=== PATIENT | male | born 1945 | race Caucasian/White ===

== ENCOUNTER 2017-02-16 13:08 | Inpatient (IN) ==
[2017-02-16] MEDS ORDERED: 0.9 % Sodium Chloride 500 ML IVC ONE ×2 (13:49→15:28)
[2017-02-16 13:57] LABS: Basophils % 0.4 %; Eosinophils # 0.4 K/mcL (0.0-0.6); Eosinophils % 7.7 %; Hematocrit 31.2 % (37.5-50.1); Hemoglobin 10.9 g/dL (12.9-16.9); Immature Granulocytes % 0.2 % (0-4); Lymphocytes # 2.3 K/mcL (0.6-4.6); Lymphocytes % 42.2 %; Mean Corpuscular HGB Conc 34.9 g/dL (31.6-35.5); Mean Corpuscular Hemoglobin 32.3 pg (28.0-33.3); Mean Corpuscular Volume 92.6 fL (83.0-100.0); Monocytes # 0.8 K/mcL (0.0-1.3); Monocytes % 14.4 %; Neutrophils # 1.9 K/mcL (1.6-8.9); Platelet Count 115 K/mcL (140-400); Red Blood Count 3.37 M/mcL (4.19-5.50); Red Cell Distribution Width 14.5 % (11.5-14.5); Segmented Neutrophils % 35.1 %
[2017-02-16 14:03] LABS: Prothrombin Time 10.8 Seconds (9.4-12.1)
[2017-02-16 14:14] LABS: Alanine Aminotransferase 12 Units/L (0-55); Albumin 2.5 g/dL (3.5-5.0); Albumin/Globulin Ratio 1.3 (1.1-2.2); Alkaline Phosphatase 42 Units/L (38-126); Amylase 57 Units/L (25-125); Aspartate Amino Transferase 14 Units/L (5-34); BUN/Creatinine Ratio 24 (6-26); Bilirubin,Direct 0.1 mg/dL (0.0-0.5); Bilirubin,Indirect 0.2 mg/dL (0.0-1.2); Bilirubin,Total 0.3 mg/dL (0.2-1.2); Blood Urea Nitrogen 23 mg/dL (8-26); Calcium 8.1 mg/dL (8.6-10.8); Carbon Dioxide 22 mEq/L (19-29); Chloride 115 mEq/L (98-109); Glucose 94 mg/dL (70-99); Lipase 18 Units/L (8-78); Osmolality,Calculated 295 (280-300); Potassium 3.6 mEq/L (3.5-4.5); Sodium 141 mEq/L (136-145); Total Protein 4.5 g/dL (6.0-8.3); eGFR For African Americans > 60 (> 60); eGFR For Non-African Americans > 60 (> 60)
[2017-02-16 14:58] LABS: Bilirubin,Urine Negative (Negative); Blood,Urine Negative (Negative); Clarity,Urine Clear (Clear); Color,Urine Yellow (Yellow); Glucose,Urine (UA) Normal (Normal); Ketones,Urine Negative (Negative); Leukocyte Esterase,Urine Negative (Negative); Nitrite,Urine Negative (Negative); PH,Urine 5.5 pH Units (5.0-8.0); Protein,Urine Negative (Neg-Trace); Specific Gravity,Urine > 1.030 (1.010-1.025); Urobilinogen,Urine Normal (Normal)
--- NOTE | 2017-02-16 15:08 | Emergency Department Note ---
Disposition Clinical Impression: Hypotension Qualifiers: Hypotension type: unspecified hypotension type Qualified Code(s): I95.9 - Hypotension, unspecified Disposition: Admitted As Inpatient Condition: Fair Referrals: NO,PCP [Non-Partnered Physician] - Forms: Work/School Release, ED Satisfaction Letter Time of Disposition: 17:34 Abdominal Pain HPI - General Chief Complaint: ED Abdominal Pain Stated Complaint: abd distention, dark stool Time Seen by Provider: 02/16/17 13:25 Source: patient Limitations: no limitations Nursing Notes Reviewed: Yes Vital Signs Reviewed: Yes - History of Present Illness HPI Narrative: Old male with a past medical history of colon cancer with colon transection with the complaint of dark black stool since Sunday with some periumbilical abdominal pain. He was diagnosed with cancer in October 2016, he currently undergoes treatment every other week with chemotherapy. He states on Sunday he began having very dark and black stools and today he had 2 episodes of diarrhea that were also dark black. Also had some periumbilical pain has been constant and is notanything that makes it better or worse. Along with some abdominal distention. Admits to taking Pepto-Bismol for the past 3 days as well. No chest pain or shortness of breath, no diaphoresis, no vomiting, , however the patient does have nausea. He is seen on Sunday at [facility] and he had a CT of his abdomen pelvis and on that day. Pt Subjective Complaint: abdominal pain Onset (ago): day(s) Consistency: constant Location: periumbilical Pain Severity: mild Pain Scale: 0 Quality: aching - Related Data Home Medications Medication Instructions Recorded Confirmed Aspirin 81 mg PO DAILY 11/09/16 12/18/16 Carvedilol [Coreg] 0.5 tab PO BID 11/09/16 12/18/16 Docusate [Colace] 1 tab PO BID 11/09/16 12/18/16 Fluticasone Propionate Nasal 16 gm NS BID 11/09/16 12/18/16 [Flonase] GuaiFENesin/Dextromethorphan 5 ml PO QID PRN 11/09/16 12/18/16 [Children's Mucinex Cough Liq] Ketoconazole Shampoo [Nizoral 12 appl TP DAILY 11/09/16 12/18/16 Shampoo] Lisinopril [Zestril] 40 mg PO DAILY 11/09/16 12/18/16 Lovastatin [Altoprev] 40 mg PO DAILY 11/09/16 12/18/16 Naproxen [Naprosyn] 500 mg PO BID 11/09/16 12/18/16 Tamsulosin [Flomax] 0.4 mg PO DAILY 11/09/16 12/18/16 Venlafaxine [Effexor] 1 tab PO DAILY 11/09/16 12/18/16 amLODIPine [Norvasc] 5 mg PO DAILY 11/09/16 12/18/16 hydroCHLOROthiazide 12.5 mg PO DAILY 11/09/16 12/18/16 [Hydrochlorothiazide] raNITIdine HCl [Ranitidine HCl] 150 mg PO DAILY 11/09/16 12/18/16 Previous Rx's Medication Instructions Recorded Hydrocortisone Acetate 1 appl TP TID PRN #28 gm 11/09/16 [Hydrocortisone] Omeprazole [PriLOSEC] 20 mg PO DAILY #30 cap 11/09/16 Prochlorperazine Maleate 10 mg PO Q6HR PRN #60 tablet 11/09/16 [Compazine] Ondansetron ODT [Zofran ODT] 4 mg SL Q6HR PRN #20 tab.rapdis 11/27/16 Pantoprazole Sodium [Protonix] 40 mg PO DAILY #30 tablet. 11/27/16 Promethazine [Phenergan] 25 mg RC Q6HR PRN #20 supp.rect 01/22/17 Loratadine [Allergy Relief] 10 mg PO AD PRN #30 tablet 02/05/17 Gabapentin [Neurontin] 300 mg PO BID #30 capsule 02/14/17 Magic Mouthwash 5 ml PO Q4H PRN #240 ml 02/14/17 Allergies Allergy/AdvReac Type Severity Reaction Status Date / Time No Known Allergies Allergy Verified 12/04/16 11:22 Abdominal Pain PMH - Past Medical History Medical history: Reports: cancer, COPD, hypertension, kidney stones, other Male Surgical History: Reports: colectomy, herniorrhaphy, other Psychiatric history: Reports: no psych history - Social History Smoking status: Former smoker Alcohol use: Reports: none Drug use: Reports: none Physical Exam - General Limitations: no limitations General appearance: alert, in no apparent distress - Head Head exam: atraumatic, normocephalic - Eye Eye exam: Present: normal appearance, PERRL, EOMI - ENT ENT exam: normal exam, normal oropharynx, mucous membranes dry - Neck Neck exam: Present: normal inspection, full ROM, trachea midline, tenderness - Chest Chest inspection: Present: normal inspection, symmetric chest wall rise. Absent : tenderness - Respiratory Respiratory exam: Present: normal lung sounds bilaterally. Absent: respiratory distress, wheezes - Cardiovascular Cardiovascular exam: Present: regular rate, normal rhythm, normal heart sounds - Abdominal Exam Abdominal exam: Present: tenderness, distention, normal bowel sounds, other ( Healed midline abdominal scar.). Absent: guarding, rebound, rigidity Abdominal tenderness: Present: mild (Periumbilical) - Rectal Exam Rectal exam: Present: normal inspection, normal rectal tone, heme (-) stool. Absent: black stool, bloody stool, fecal impaction, hemorrhoids, mass, tenderness - Extremities Exam Extremities exam: Present: normal inspection, full ROM. Absent: tenderness, normal capillary refill - Back Exam Back exam: Present: normal inspection, full ROM. Absent: tenderness - Neurological Exam Neurological exam: Present: alert, oriented X3 - Psychiatric Psychiatric exam: Present: normal affect, normal mood - Skin Skin exam: Present: warm, dry, intact, normal color Course Course Narrative: Patient is a 71-year-old male with past medical history of colon cancer presents today with dark black stools and abdominal pain has been going on since Sunday. Plan do some GI labs on the patient also CT his abdomen and pelvis. His abdomen pelvis as performed on Sunday 2 days ago - Reevaluation(s) Reevaluation #1: Patient updated vital signs are blood pressure 100/72, heart rate of 83, 96% on room air. He has received 500ml bolus of NS. Discussed with the patient Peptobismal can turn his stool black and this sounds relevant to the patient have dark stools on Sunday since he had started taking it on Sunday and finished today. Time: 15:10 Reevaluation #2: I discussed patient's labs with him. His electrolytes were within normal limits , patient's CBC showed a hemoglobin of 10.9. Stool occult negative. After reviewing the labs I do not believe the patient is in need of a blood transfusion at this time. His urinalysis is normal except for a specific gravity of greater than 1.030 which I attribute to the patient being dehydrated. I have ordered another liter of fluids for the patient his recent blood pressure of 100/72 is still low considering the patient has a history of hypertension. I am waiting the results of his CT abd/pelv with IV contrast. Time: 15:38 Reevaluation #3: I went into reevaluate the patient. Blood pressure is 118/76. Old 1 L fluids and still has 500 mL normal saline bolus to go. She states she is feeling well. I then that we will discuss his disposition once the final bag of fluids is gone Time: 16:40 Additional Reevaluation(s): I discussed the plan with the patient to admit him for his hypotension agrees with the plan. - Consultations Consultation #1: I spoke with Man Zacarias NP. I discussed the patient case and to admit him for observation for transient hypotension. He will accept the patient. Time: 17:32 Vital Signs Temperature 97.4 F L 02/16/17 13:15 Pulse Rate 91 02/16/17 13:15 Respiratory Rate 16 02/16/17 13:15 Blood Pressure 86/61 02/16/17 13:15 O2 Sat by Pulse Oximetry 97 02/16/17 13:15 Temperature 97.4 F L 02/16/17 13:15 Pulse Rate 86 02/16/17 17:06 Respiratory Rate 14 02/16/17 17:06 Blood Pressure 124/76 02/16/17 17:06 O2 Sat by Pulse Oximetry 98 02/16/17 17:06 Oxygen Delivery Oxygen Delivery Room Air Abdominal Pain - Medical Records Medical records reviewed: Yes I reviewed the patient's medical records. - Lab Data Lab results reviewed: Yes I reviewed the patient's lab results. Result diagrams: 02/16/17 13:48 02/16/17 13:48 Lab Results 02/16/17 02/16/17 02/16/17 Range/Units 13:48 13:48 13:48 WBC 5.4 (4.3-11.1) K/mcL RBC 3.37 L (4.19-5.50) M/mcL Hgb 10.9 L (12.9-16.9) g/dL Hct 31.2 L (37.5-50.1) % MCV 92.6 (83.0-100.0) fL MCH 32.3 (28.0-33.3) pg MCHC 34.9 (31.6-35.5) g/dL RDW 14.5 (11.5-14.5) % Plt Count 115 L (140-400) K/mcL MPV 10.0 (9.4-12.4) fL Immature Gran % 0.2 (0-4) % Seg Neutrophils % 35.1 % Lymphocytes % 42.2 % Monocytes % 14.4 % Eosinophils % 7.7 % Basophils % 0.4 % Neutrophils # 1.9 (1.6-8.9) K/mcL Lymphocytes # 2.3 (0.6-4.6) K/mcL Monocytes # 0.8 (0.0-1.3) K/mcL Eosinophils # 0.4 (0.0-0.6) K/mcL Basophils # 0.0 (0.0-0.2) K/mcL PT 10.8 (9.4-12.1) Seconds INR 1.0 APTT 25.0 L (26.0-36.0) Seconds Sodium 141 (136-145) mEq/L Potassium 3.6 (3.5-4.5) mEq/L Chloride 115 H (98-109) mEq/L Carbon Dioxide 22 (19-29) mEq/L BUN 23 (8-26) mg/dL Creatinine 0.94 (0.72-1.25) mg/dL Est GFR ( Amer) > 60 (> 60) Est GFR (Non-Af Amer) > 60 (> 60) BUN/Creatinine Ratio 24 (6-26) Glucose 94 (70-99) mg/dL Calculated Osmolality 295 (280-300) Calcium 8.1 L (8.6-10.8) mg/dL Total Bilirubin 0.3 (0.2-1.2) mg/dL Direct Bilirubin 0.1 (0.0-0.5) mg/dL Indirect Bilirubin 0.2 (0.0-1.2) mg/dL AST 14 (5-34) Units/L ALT 12 (0-55) Units/L Alkaline Phosphatase 42 (38-126) Units/L Troponin I (0-0.03) ng/mL Serum Total Protein 4.5 L (6.0-8.3) g/dL Albumin 2.5 L (3.5-5.0) g/dL Globulin 2.0 L (2.4-3.5) g/dL Albumin/Globulin Ratio 1.3 (1.1-2.2) Amylase 57 (25-125) Units/L Lipase 18 (8-78) Units/L Urine Color (Yellow) Urine Clarity (Clear) Urine pH (5.0-8.0) pH Units Ur Specific York (1.010-1.025) Urine Protein (Neg-Trace) mg/dL Urine Glucose (UA) (Normal) mg/dL Urine Ketones (Negative) mg/dL Urine Blood (Negative) Urine Nitrite (Negative) Urine Bilirubin (Negative) Urine Urobilinogen (Normal) mg/dL Ur Leukocyte Esterase (Negative) Ur Culture Indicated? (NO) Stool Occult Blood (Negative) Blood Type Antibody Screen 02/16/17 02/16/17 02/16/17 Range/Units 13:48 13:48 14:19 WBC (4.3-11.1) K/mcL RBC (4.19-5.50) M/mcL Hgb (12.9-16.9) g/dL Hct (37.5-50.1) % MCV (83.0-100.0) fL MCH (28.0-33.3) pg MCHC (31.6-35.5) g/dL RDW (11.5-14.5) % Plt Count (140-400) K/mcL MPV (9.4-12.4) fL Immature Gran % (0-4) % Seg Neutrophils % % Lymphocytes % % Monocytes % % Eosinophils % % Basophils % % Neutrophils # (1.6-8.9) K/mcL Lymphocytes # (0.6-4.6) K/mcL Monocytes # (0.0-1.3) K/mcL Eosinophils # (0.0-0.6) K/mcL Basophils # (0.0-0.2) K/mcL PT (9.4-12.1) Seconds INR APTT (26.0-36.0) Seconds Sodium (136-145) mEq/L Potassium (3.5-4.5) mEq/L Chloride (98-109) mEq/L Carbon Dioxide (19-29) mEq/L BUN (8-26) mg/dL Creatinine (0.72-1.25) mg/dL Est GFR ( Amer) (> 60) Est GFR (Non-Af Amer) (> 60) BUN/Creatinine Ratio (6-26) Glucose (70-99) mg/dL Calculated Osmolality (280-300) Calcium (8.6-10.8) mg/dL Total Bilirubin (0.2-1.2) mg/dL Direct Bilirubin (0.0-0.5) mg/dL Indirect Bilirubin (0.0-1.2) mg/dL AST (5-34) Units/L ALT (0-55) Units/L Alkaline Phosphatase (38-126) Units/L Troponin I 0.00 (0-0.03) ng/mL Serum Total Protein (6.0-8.3) g/dL Albumin (3.5-5.0) g/dL Globulin (2.4-3.5) g/dL Albumin/Globulin Ratio (1.1-2.2) Amylase (25-125) Units/L Lipase (8-78) Units/L Urine Color (Yellow) Urine Clarity (Clear) Urine pH (5.0-8.0) pH Units Ur Specific York (1.010-1.025) Urine Protein (Neg-Trace) mg/dL Urine Glucose (UA) (Normal) mg/dL Urine Ketones (Negative) mg/dL Urine Blood (Negative) Urine Nitrite (Negative) Urine Bilirubin (Negative) Urine Urobilinogen (Normal) mg/dL Ur Leukocyte Esterase (Negative) Ur Culture Indicated? (NO) Stool Occult Blood Negative (Negative) Blood Type A POSITIVE Antibody Screen NEGATIVE 02/16/17 Range/Units 14:37 WBC (4.3-11.1) K/mcL RBC (4.19-5.50) M/mcL Hgb (12.9-16.9) g/dL Hct (37.5-50.1) % MCV (83.0-100.0) fL MCH (28.0-33.3) pg MCHC (31.6-35.5) g/dL RDW (11.5-14.5) % Plt Count (140-400) K/mcL MPV (9.4-12.4) fL Immature Gran % (0-4) % Seg Neutrophils % % Lymphocytes % % Monocytes % % Eosinophils % % Basophils % % Neutrophils # (1.6-8.9) K/mcL Lymphocytes # (0.6-4.6) K/mcL Monocytes # (0.0-1.3) K/mcL Eosinophils # (0.0-0.6) K/mcL Basophils # (0.0-0.2) K/mcL PT (9.4-12.1) Seconds INR APTT (26.0-36.0) Seconds Sodium (136-145) mEq/L Potassium (3.5-4.5) mEq/L Chloride (98-109) mEq/L Carbon Dioxide (19-29) mEq/L BUN (8-26) mg/dL Creatinine (0.72-1.25) mg/dL Est GFR ( Amer) (> 60) Est GFR (Non-Af Amer) (> 60) BUN/Creatinine Ratio (6-26) Glucose (70-99) mg/dL Calculated Osmolality (280-300) Calcium (8.6-10.8) mg/dL Total Bilirubin (0.2-1.2) mg/dL Direct Bilirubin (0.0-0.5) mg/dL Indirect Bilirubin (0.0-1.2) mg/dL AST (5-34) Units/L ALT (0-55) Units/L Alkaline Phosphatase (38-126) Units/L Troponin I (0-0.03) ng/mL Serum Total Protein (6.0-8.3) g/dL Albumin (3.5-5.0) g/dL Globulin (2.4-3.5) g/dL Albumin/Globulin Ratio (1.1-2.2) Amylase (25-125) Units/L Lipase (8-78) Units/L Urine Color Yellow (Yellow) Urine Clarity Clear (Clear) Urine pH 5.5 (5.0-8.0) pH Units Ur Specific [place] > 1.030 H (1.010-1.025) Urine Protein Negative (Neg-Trace) mg/dL Urine Glucose (UA) Normal (Normal) mg/dL Urine Ketones Negative (Negative) mg/dL Urine Blood Negative (Negative) Urine Nitrite Negative (Negative) Urine Bilirubin Negative (Negative) Urine Urobilinogen Normal (Normal) mg/dL Ur Leukocyte Esterase Negative (Negative) Ur Culture Indicated? NO (NO) Stool Occult Blood (Negative) Blood Type Antibody Screen - Radiology Data Radiology results reviewed: Yes I reviewed the patient's radiology results. Abdomen/Pelvis CT 02/16/17 13:48 IMPRESSION: Status post distal transverse colonic resection similar to prior exam. Patient does have history of colon cancer. No evidence for tumor recurrence or metastatic disease within the abdomen or pelvis. Stable 6 mm hypodensity within the medial segment of the left hepatic lobe which again most likely represents a benign cyst. Stable bilateral renal cysts. Stable nonobstructing right nephrolithiasis. D/ / Sean Steve MD / Sean Steve MD Interpreting Provider: Sean Steve MD - EKG Data EKG attestation: Yes I reviewed and interpreted this EKG. EKG results narrative: G was interpreted by me. Hent is normal sinus rhythm at a rate of 84. [place], QRS , QT/QTC are within normal limits. No old EKG for comparison.
[2017-02-16] MEDS ORDERED: 0.9 % Sodium Chloride 1,000 ML IVC ONE (15:31)
--- NOTE | 2017-02-16 19:29 | Internal Med History&Physical ---
<Man Montiel - Last Filed: 02/16/17 23:27> Date of Encounter: 02/16/17 Time of Encounter: 19:28 Assessment and Plan (1) Abdominal pain Current visit: Yes Status: Acute 71-year-old male status post partial colectomy for colon cancer back in September with abdominal discomfort. Abdominal discomfort improves with eating and returns about an hour after. The patient does have complaints of abdominal bloating. - Patient complaint correlates with gastritis versus gastric ulcer. Abdominal bloating may be secondary to bowel gas. The patient also had a complaint of dark stool for the last week but also in the last week he has been taking oral Pepto-Bismol frequently for his epigastric discomfort. - CT of the abdomen was without significant findings. There is a nonobstructing right kidney stone, 6 mm cyst in the liver and multiple cysts in bilateral kidneys. There were no masses appreciated on the CT of the abdomen and pelvis. - Dark stool likely secondary to Pepto-Bismol. Stool Occult Negative. Plan: - Protonix 40 mg twice a day - Hold the Pepto-Bismol - Carafate 1 g 4 times a day when necessary - Avoid acidic foods Qualifiers: Qualified Code(s): R10.9 - Unspecified abdominal pain (2) Dark stools Current visit: Yes Status: Acute As discussed above. (3) Hypertension Current visit: Yes Status: Acute Stable. Continue antihypertensive regimen Qualifiers: Qualified Code(s): I10 - Essential (primary) hypertension (4) Colon cancer Current visit: No Status: Acute Patient had recent diagnosis of colon cancer, underwent partial colectomy in September 2016. Continues to have chemotherapy every 2 weeks. Qualifiers: Colon location: overlapping sites Qualified Code(s): C18.8 - Malignant neoplasm of overlapping sites of colon (5) DVT prophylaxis Current visit: Yes Status: Acute Lovenox 40 mg subcutaneous daily Internal Medicine - H&P: HPI Chief complaint: Abdominal pain Admitted From: Emergency Dept Plans for Post Hospital Care: Home History of present illness: Mr. Evans is a 71 year old male past medical history of recent colectomy secondary to colon cancer, current chemo therapy treatment, hypertension admitted to the general medical floor with abdominal pain and dark stools. Mr. Evans says that he has been experiencing abdominal bloating and fullness and discomfort along the top of his abdomen for roughly 3 weeks. For the past week he has had dark stools, normal in caliber and no noticeable blood and not tarry in nature. This morning he woke up and his abdomen felt tense and bloated and he had diarrhea 2 episodes with dark stools. He did have improvement of his abdominal bloating after he had the diarrhea episodes. He continues to have some abdominal discomfort in the epigastric and periumbilical regions. He notices the pain more so when he has not empty stomach improvement after eating. He has been taking oral Pepto-Bismol for discomfort for roughly 1 week now. He maintains his appetite, denies weight loss. He denies any fevers, chills, sweating, chest pressure, palpitations chest pain but has had only a little bit of shortness of breath today that resolved. He denies any swelling in any of his extremities. He is hungry and asked if he is able to eat. Past Med Surg Social Fam HX - Past Medical History Medical history: cancer, COPD, hypertension, kidney stones, other Psychiatric history: no psych history - Past Surgical History Surgical History: colectomy - Social History Smoking Status: Former smoker Smokeless Tobacco Status: No Alcohol use: none Drug use: none - Family History Father Hx Family Cardiac Disorders: Yes (Heart failure) Hx Family Respiratory Disorders: Yes (Emphysema) Mother Hx Family Cardiac Disorders: Yes (Triple bypass, coronary artery disease) Hx Family Endocrine Disorder: Yes (Diabetes) Sister Hx Family Cardiac Disorders: Yes (Triple bypass) Hx Family Endocrine Disorder: Yes (Diabetes) Internal Medicine - H&P: Meds Aspirin 81 mg PO DAILY 11/09/16 [History] Carvedilol [Coreg] 0.5 tab PO BID 11/09/16 [History] Docusate [Colace] 1 tab PO BID 11/09/16 [History] Fluticasone Propionate Nasal [Flonase] 16 gm NS BID 11/09/16 [History] GuaiFENesin/Dextromethorphan [Children's Mucinex Cough Liq] 5 ml PO QID PRN [History] Hydrocortisone Acetate [Hydrocortisone] 1 appl TP TID PRN #28 gm 11/09/16 [Rx] Ketoconazole Shampoo [Nizoral Shampoo] 12 appl TP DAILY 11/09/16 [History] Lisinopril [Zestril] 40 mg PO DAILY 11/09/16 [History] Lovastatin [Altoprev] 40 mg PO DAILY 11/09/16 [History] Naproxen [Naprosyn] 500 mg PO BID 11/09/16 [History] Omeprazole [PriLOSEC] 20 mg PO DAILY #30 cap 11/09/16 [Rx] Prochlorperazine Maleate [Compazine] 10 mg PO Q6HR PRN #60 tablet 11/09/16 [Rx] Tamsulosin [Flomax] 0.4 mg PO DAILY 11/09/16 [History] Venlafaxine [Effexor] 1 tab PO DAILY 11/09/16 [History] amLODIPine [Norvasc] 5 mg PO DAILY 11/09/16 [History] hydroCHLOROthiazide [Hydrochlorothiazide] 12.5 mg PO DAILY 11/09/16 [History] raNITIdine HCl [Ranitidine HCl] 150 mg PO DAILY 11/09/16 [History] Ondansetron ODT [Zofran ODT] 4 mg SL Q6HR PRN #20 tab.rapdis 11/27/16 [Rx] Pantoprazole Sodium [Protonix] 40 mg PO DAILY #30 tablet.dr 11/27/16 [Rx] Promethazine [Phenergan] 25 mg RC Q6HR PRN #20 supp.rect 01/22/17 [Rx] Loratadine [Allergy Relief] 10 mg PO AD PRN #30 tablet 02/05/17 [Rx] Gabapentin [Neurontin] 300 mg PO BID #30 capsule 02/14/17 [Rx] Magic Mouthwash 5 ml PO Q4H PRN #240 ml 02/14/17 [Rx] Allergies No Known Allergies Allergy (Verified 12/04/16 11:22) All Systems PM: A 10-system review of systems was performed and is negative for pertinent findings except as documented above in the HPI. - Constitutional Constitutional: no chills, no fever(s), no night sweats - EENT Eyes: no change in vision, no discharge, no pain, no photophobia Ears: no ear discharge, no ear pain, no tinnitus Nose, mouth and throat: no dysphagia, no nasal discharge, no neck pain, no sore throat - Cardiovascular Cardiovascular ROS IM: no chest pain, no diaphoresis, no dyspnea, no lightheadedness, no palpitations, no syncope - Respiratory Respiratory: no cough, no dyspnea, no wheezing, no excessive phlegm production - Gastrointestinal Gastrointestinal: belching, bloating, diarrhea, dyspepsia, loose stools, no abdominal pain, no hematemesis, no hematochezia, no melena, no nausea, no vomiting - Musculoskeletal Musculoskeletal ROS IM: no numbness, no tingling - Integumentary Integumentary IM: no rash, no unusual bruising - Neurological Neurological ROS: no confusion, no convulsions, no focal weakness, no numbness, no tingling, no tremor(s) - Hematologic/Lymphatic Hematologic/Lymphatic: no easy bruising - Constitutional Vitals: Temp Pulse Resp BP Pulse Ox 97.4 F L 87 16 124/75 98 02/16/17 18:18 02/16/17 18:24 02/16/17 18:24 02/16/17 18:24 02/16/17 18:24 General appearance: Present: A&O X 3 Exam: General: Patient alert, awake, oriented 3, interactive, in no acute distress HEENT: Normocephalic, atraumatic, pupils equal reactive to light, nasal cavity patent and open septum median position, oral mucosa moist, uvula midline, neck supple trachea midline no palpable lymphadenopathy, no thyromegaly. Chest: Symmetric bilateral correlating with respiratory effort, effort nonlabored. Cardiac: Regular rate and rhythm, positive S1 and S2. no bruits appreciated bilateral carotids, Radial pulses 2+ bilateral, posterior tibial and dorsal pedal pulses 2+ bilateral. Respiratory: Clear to auscultation all lung cordon Abdomen: Soft, nontender, positive bowel sounds, suprapubic midline fullness just inferior to the patient's abdominal scar. Extremities: Symmetric bilateral, bilateral lower extremities without erythema or edema patient moving all 4 extremities spontaneously. Neurologic: No focal deficits appreciated on examination. Face symmetric, muscle strength symmetric bilateral upper and lower extremities. Internal Med - H&P Results - Labs CBC & Chem 7: 02/16/17 13:48 02/16/17 13:48 <Williams-Segundo Mc - Last Filed: 02/16/17 23:48> Date of Encounter: 02/16/17 Internal Medicine - H&P: HPI History of present illness: Mr. Evans is a 71 year old male All Systems PM: A 10-system review of systems was performed and is negative for pertinent findings except as documented above in the HPI. - Constitutional Vitals: Temp Pulse Resp BP Pulse Ox 97.4 F L 80 18 131/82 97 02/16/17 19:15 02/16/17 19:15 02/16/17 19:15 02/16/17 19:15 02/16/17 19:15 Internal Med - H&P Results - Labs CBC & Chem 7: 02/16/17 13:48 02/16/17 13:48 - Attending Attestation I have seen and examined the patient. I discussed about the patient with . I reviewed the orders and the note. Patient is a 71-year-old male with a past medical history COPD, hypertension, renal stones, colon cancer status post colectomy recently. Patient presents to the ED with complaints of abdominal pain. Patient started having some abnormal bloating and fullness and discomfort for almost 3 weeks. He has also had some dark stools but no noticeable blood. Patient states he has been taking the Pepto-Bismol for his discomfort for almost 1 week. He denies weight loss and states he has normal appetite. Denies fever or chills or sweating or chest pressure or palpitations. Initial workup in the ED is negative. Fecal Hemoccult is also negative. CT of the abdomen and pelvis done in the ED with contrast shows status post distal transverse colonic resection with no evidence of tumor recurrence or metastatic disease and stable bilateral renal cysts and stable nonobstructing right nephrolithiasis with a stable 6 mm hypodensity within the medial segment of the left hepatic lobe which is benign and likely. Patient is being admitted for abdominal pain which is likely due to gastritis. We will continue IV Protonix. Patient has been explained about his condition and plan of care. Understood and agreed. No unanswered questions. CODE STATUS full code.
[2017-02-16] MEDS ORDERED: *HR* Morphine 2 MG/ML SYRINGE IVP PRN (20:56)
[2017-02-16] MEDS ORDERED: Ondansetron 4 MG/2 ML VIAL IVP PRN (20:56)
[2017-02-16] MEDS ORDERED: Acetaminophen 325 MG TABLET PO PRN (20:56)
[2017-02-16] MEDS ORDERED: Naloxone 0.4 MG/ML INJ IVP PRN (20:56)
[2017-02-16] MEDS: Pantoprazole 40 MG VIAL IVP SCH (21:58)
[2017-02-17 03:17] LABS: Mean Corpuscular HGB Conc 34.4 g/dL (31.6-35.5); Red Cell Distribution Width 14.7 % (11.5-14.5)
[2017-02-17 03:19] LABS: Basophils % 0.3 %; Eosinophils # 0.5 K/mcL (0.0-0.6); Eosinophils % 12.8 %; Hematocrit 27.6 % (37.5-50.1); Hemoglobin 9.5 g/dL (12.9-16.9); Immature Platelets 2.2 % (1.1-6.1); Lymphocytes # 2.1 K/mcL (0.6-4.6); Lymphocytes % 54.2 %; Mean Corpuscular Hemoglobin 32.3 pg (28.0-33.3); Mean Corpuscular Volume 93.9 fL (83.0-100.0); Mean Platelet Volume 9.8 fL (9.4-12.4); Monocytes # 0.5 K/mcL (0.0-1.3); Neutrophils # 0.8 K/mcL (1.6-8.9); Platelet Count 110 K/mcL (140-400); Red Blood Count 2.94 M/mcL (4.19-5.50); Segmented Neutrophils % 19.7 %
[2017-02-17 03:28] LABS: BUN/Creatinine Ratio 24 (6-26); Blood Urea Nitrogen 19 mg/dL (8-26); Calcium 8.1 mg/dL (8.6-10.8); Carbon Dioxide 24 mEq/L (19-29); Chloride 116 mEq/L (98-109); Glucose 80 mg/dL (70-99); Osmolality,Calculated 293 (280-300); Potassium 3.4 mEq/L (3.5-4.5); Sodium 141 mEq/L (136-145); eGFR For African Americans > 60 (> 60); eGFR For Non-African Americans > 60 (> 60)
[2017-02-17] MEDS: Sucralfate 1 GM TABLET PO SCH ×2 (06:23→16:22)
[2017-02-17] MEDS: *HR* Enoxaparin 40 MG/0.4 ML SYRINGE SQ SCH (06:23)
[2017-02-17] MEDS: Pantoprazole 40 MG VIAL IVP SCH ×2 (07:35→20:13)
[2017-02-18] MEDS: *HR* Enoxaparin 40 MG/0.4 ML SYRINGE SQ SCH (05:27)
[2017-02-18] MEDS: Sucralfate 1 GM TABLET PO SCH (05:27)
[2017-02-18] MEDS: Pantoprazole 40 MG VIAL IVP SCH (08:54)
[2017-02-18 09:49] LABS: Hematocrit 30.9 % (37.5-50.1); Hemoglobin 10.7 g/dL (12.9-16.9)
--- NOTE | 2017-02-18 11:53 | Internal Med Progress Note ---
Date of Encounter: 02/18/17 (Late entry) Time of Encounter: 12:45 (Late entry) - Assessment and plan (1) Abdominal pain Current Visit: Yes Status: Acute Qualifiers: Qualified Code(s): R10.9 - Unspecified abdominal pain (2) Dark stools Current Visit: Yes Status: Acute (3) Hypertension Current Visit: Yes Status: Acute Qualifiers: Qualified Code(s): I10 - Essential (primary) hypertension (4) DVT prophylaxis Current Visit: Yes Status: Acute (5) Colon cancer Current Visit: No Status: Acute Qualifiers: Colon location: overlapping sites Qualified Code(s): C18.8 - Malignant neoplasm of overlapping sites of colon - Subjective Interval history: Patient is admitted for symptoms of dyspepsia which have resolved with IV Protonix. He takes Pepto-Bismol. However his stool Hemoccult was negative. Serial hemoglobin remained stable and I doubt he had an active GI bleed. He has been diagnosed with colon cancer and underwent right-sided colectomy in September. He is undergoing chemotherapy treatment currently. Will continue to monitor his hemoglobin. - Constitutional Vitals: Temp Pulse Resp BP Pulse Ox 97.9 F 92 18 125/84 95 02/18/17 06:53 02/18/17 06:53 02/18/17 06:53 02/18/17 06:53 02/18/17 06:53 General appearance: Present: A&O X 3 - Head Head exam: Present: atraumatic, normocephalic - Eye Eye exam: Present: PERRL, conjuntiva pink, sclera anicteric Pupils: Present: PERRL - Neck Neck exam general surgery: Present: supple, trachea midline. Absent: lymphadenopathy - Respiratory Respiratory exam: Present: CTAB. Absent: accessory muscle use, rales, rhonchi, wheezes - Cardiovascular Cardiovascular exam: Present: RRR, +S1, +S2. Absent: diastolic murmur, gallop, rubs, systolic murmur - GI/Abdominal GI/Abdominal exam: Present: normal bowel sounds, soft, no peritoneal signs. Absent: distended, tenderness - Extremities Exam Extremities exam: Present: warm, radial pulses palpable and symetrical. Absent : calf tenderness, cyanotic, pedal edema - Neurological Exam Neurological exam: Present: CN II-XII intact, oriented X3, no focal deficits. Absent: pronater drift, facial droop, speech deficit - Skin Skin exam: Present: dry, intact Internal Medicine: Result - Labs CBC & Chem 7: 02/18/17 09:35 02/17/17 03:10 Labs: Short CBC 02/18/17 Range/Units 09:35 Hgb 10.7 L (12.9-16.9) g/dL Hct 30.9 L (37.5-50.1) % - ABG Interpretation ABG results: PT/INR, D-dimer PT 10.8 Seconds (9.4-12.1) 02/16/17 13:48 - VTE Documentation of Mechanical Device: Intermittent pneumatic compression device Consult Discharge Plan - Plan Referrals: [facility] [Outside]
--- NOTE | 2017-02-18 11:57 | Discharge Summary ---
Date of Encounter: 02/18/17 Time of Encounter: 11:55 - Discharge Diagnosis (1) Abdominal pain Priority: Primary Status: Acute Qualifiers: Qualified Code(s): R10.9 - Unspecified abdominal pain (2) Dark stools Priority: Secondary Status: Acute (3) Hypertension Priority: Secondary Status: Acute Qualifiers: Qualified Code(s): I10 - Essential (primary) hypertension (4) DVT prophylaxis Priority: Secondary Status: Acute (5) Colon cancer Priority: Secondary Status: Acute Qualifiers: Colon location: overlapping sites Qualified Code(s): C18.8 - Malignant neoplasm of overlapping sites of colon - Discharge Medications Home Medications: Aspirin 81 mg PO DAILY 11/09/16 [History] Carvedilol [Coreg] 0.5 tab PO BID 11/09/16 [History] Docusate [Colace] 1 tab PO BID 11/09/16 [History] Fluticasone Propionate Nasal [Flonase] 16 gm NS BID 11/09/16 [History] GuaiFENesin/Dextromethorphan [Children's Mucinex Cough Liq] 5 ml PO QID PRN [History] Hydrocortisone Acetate [Hydrocortisone] 1 appl TP TID PRN #28 gm 11/09/16 [Rx] Ketoconazole Shampoo [Nizoral Shampoo] 12 appl TP DAILY 11/09/16 [History] Lisinopril [Zestril] 40 mg PO DAILY 11/09/16 [History] Lovastatin [Altoprev] 40 mg PO DAILY 11/09/16 [History] Naproxen [Naprosyn] 500 mg PO BID 11/09/16 [History] Omeprazole [PriLOSEC] 20 mg PO DAILY #30 cap 11/09/16 [Rx] Prochlorperazine Maleate [Compazine] 10 mg PO Q6HR PRN #60 tablet 11/09/16 [Rx] Tamsulosin [Flomax] 0.4 mg PO DAILY 11/09/16 [History] Venlafaxine [Effexor] 1 tab PO DAILY 11/09/16 [History] amLODIPine [Norvasc] 5 mg PO DAILY 11/09/16 [History] hydroCHLOROthiazide [Hydrochlorothiazide] 12.5 mg PO DAILY 11/09/16 [History] raNITIdine HCl [Ranitidine HCl] 150 mg PO DAILY 11/09/16 [History] Ondansetron ODT [Zofran ODT] 4 mg SL Q6HR PRN #20 tab.rapdis 11/27/16 [Rx] Promethazine [Phenergan] 25 mg RC Q6HR PRN #20 supp.rect 01/22/17 [Rx] Loratadine [Allergy Relief] 10 mg PO AD PRN #30 tablet 02/05/17 [Rx] Gabapentin [Neurontin] 300 mg PO BID #30 capsule 02/14/17 [Rx] Magic Mouthwash 5 ml PO Q4H PRN #240 ml 02/14/17 [Rx] Pantoprazole Sodium [Protonix] 40 mg PO BID #60 tablet. 02/18/17 [Rx] Allergies/Adverse Reactions: Allergies No Known Allergies Allergy (Verified 12/04/16 11:22) Date of admission: 02/16/17 19:39 Primary care physician: PCP ND Discharging clinician: Shodna Mason Anticipated date of discharge: 02/18/17 - Patient Status Disposition: Home, Self-Care Condition: Fair Overall status at discharge: patient is progressing back to baseline - Discharge Instructions Follow Up With: [facility] [Outside] - Diet and Activity Activity: resume usual activities as tolerated Diet: advance to your usual diet Hospital course: Mr. Evans is a 71 year old male . Patient is admitted for symptoms of dyspepsia which have resolved with IV Protonix. He takes Pepto-Bismol. However his stool Hemoccult was negative. Serial hemoglobin remained stable and I doubt he had an active GI bleed. He has been diagnosed with colon cancer and underwent right-sided colectomy in September. He is undergoing chemotherapy treatment currently. As he is stable therefore we will restart his diet and see if his symptoms resolve. He is advised to follow up with gastroenterology as outpatient - Time Spent with Patient Total time spent providing and/or coordinating discharge services: Greater than 30 minutes - Constitutional Vitals: Temp Pulse Resp BP Pulse Ox 97.9 F 92 18 125/84 95 02/18/17 06:53 02/18/17 06:53 02/18/17 06:53 02/18/17 06:53 02/18/17 06:53 General appearance: Present: A&O X 3 - Head Head exam: Present: atraumatic, normocephalic - Eye Eye exam: Present: PERRL, conjuntiva pink, sclera anicteric Pupils: Present: PERRL - Neck Neck exam general surgery: Present: supple, trachea midline. Absent: lymphadenopathy - Respiratory Respiratory exam: Present: CTAB. Absent: accessory muscle use, rales, rhonchi, wheezes - Cardiovascular Cardiovascular exam: Present: RRR, +S1, +S2. Absent: diastolic murmur, gallop, rubs, systolic murmur - GI/Abdominal GI/Abdominal exam: Present: normal bowel sounds, soft, no peritoneal signs. Absent: distended, tenderness - Extremities Exam Extremities exam: Present: warm, radial pulses palpable and symetrical. Absent : calf tenderness, cyanotic, pedal edema - Neurological Exam Neurological exam: Present: CN II-XII intact, oriented X3, no focal deficits. Absent: pronater drift, facial droop, speech deficit - Skin Skin exam: Present: dry, intact - VTE Documentation of Mechanical Device: Intermittent pneumatic compression device
[2017-02-18 15:02] VITALS: BP 135/76
--- NOTE | 2017-02-18 15:31 | Electrocardiograph Report ---
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
== END 2017-02-18 15:46 | disposition home or self-care (01) | DRG 392 ==
LOC: EMEROO 13:08 → 3ANU 13:08
PROVIDERS: ADMIT Nurse Practitioner Family; ATTEND Internal Medicine

== ENCOUNTER 2021-10-31 06:27 | Inpatient (IN) ==
[2021-10-31] MEDS ORDERED: Albuterol 2.5 MG/3 ML NEBULIZER IH PRN (07:31)
[2021-10-31] MEDS ORDERED: CeFAZolin Syr 2,000MG/20 ML 2,000 MG/20 ML SYRINGE IVPB ONE (07:31)
[2021-10-31] MEDS ORDERED: *HR* HYDROmorphone (PF) 1 MG/ML SYRINGE IVP PRN (07:44)
[2021-10-31] MEDS ORDERED: *HR* Labetalol 20 MG/4 ML SYRINGE IVP PRN (07:44)
[2021-10-31] MEDS ORDERED: *HR* FentaNYL (PF) 100 MCG/2 ML VIAL IVP ONE (07:44)
[2021-10-31] MEDS ORDERED: Ringers Solution, Lactated 1,000 ML IVC SCH ×2 (07:45→12:16)
[2021-10-31] MEDS ORDERED: Acetaminophen IV 1,000 MG/100 ML BAG IVPB ONE (08:00)
[2021-10-31] MEDS ORDERED: Famotidine 20 MG/2 ML VIAL IVP ONE (08:00)
[2021-10-31] MEDS ORDERED: Vancomycin 1,000 MG VIAL ONE (08:26)
[2021-10-31] MEDS ORDERED: *HR* Midazolam HCl 2 MG/2 ML VIAL ONE (09:10)
[2021-10-31] MEDS ORDERED: TOTAL JOINT MIXTURE (100ML) INTRAART ONE (09:35)
[2021-10-31] MEDS ORDERED: Povidone-Iodine 45 ML, Sodium Chloride IRRigation 1,000 ML IR ONE (09:35)
[2021-10-31] MEDS ORDERED: *HR* Propofol 200 MG/20 ML VIAL IVP ONE (09:54)
[2021-10-31] MEDS ORDERED: EPHEDrine 50 MG/ML VIAL ONE (10:28)
[2021-10-31] MEDS ORDERED: Tranexamic Acid 1,000 MG/10 ML VIAL ONE ×2 (10:35→11:14)
[2021-10-31] MEDS ORDERED: Sennosides 8.6 MG TABLET PO PRN (12:16)
[2021-10-31] MEDS ORDERED: Fluticasone Propionate Nasal 50 MCG/SPRAY BOTTLE NS PRN (12:16)
[2021-10-31] MEDS ORDERED: Ondansetron 4 MG/2 ML VIAL IVP PRN (12:16)
[2021-10-31] MEDS ORDERED: Naloxone 0.4 MG/ML INJ IVP PRN (12:16)
[2021-10-31] MEDS ORDERED: Cyanocobalamin (B-12) 1,000 MCG/ML VIAL IM SCH (12:16)
[2021-10-31] MEDS ORDERED: *HR* Promethazine 25 MG/ML VIAL IM PRN (12:16)
[2021-10-31] MEDS ORDERED: MOM Conc 10 ML UD.LIQ PO PRN (12:16)
[2021-10-31] MEDS: *HR* OxyCODONE Immed Rel 5 MG TABLET PO PRN ×2 (13:43→23:18)
[2021-10-31] MEDS: Ascorbic Acid 500 MG TABLET PO SCH (17:06)
[2021-10-31] MEDS: Gabapentin 400 MG CAPSULE PO PRN (17:06)
[2021-10-31] MEDS: CeFAZolin 2 GM/100 ML BAG IVPB SCH (18:47)
[2021-10-31] MEDS: carvediloL 25 MG TABLET PO PRN (19:55)
[2021-10-31] MEDS: amLODIPine 5 MG TABLET PO PRN (19:56)
[2021-10-31] MEDS ORDERED: Gabapentin 300 MG CAPSULE PO SCH (21:00)
[2021-11-01] MEDS: CeFAZolin 2 GM/100 ML BAG IVPB SCH (00:14)
[2021-11-01 02:19] LABS: Hematocrit 32.7 % (37.5-50.1); Hemoglobin 10.2 g/dL (12.9-16.9); Mean Corpuscular HGB Conc 31.2 g/dL (31.6-35.5)
[2021-11-01 02:21] LABS: Basophils % 0.3 %; Eosinophils # 0.1 K/mcL (0.0-0.6); Eosinophils % 0.9 %; Immature Granulocytes % 0.6 % (0-4); Immature Platelets 3.8 % (1.1-6.1); Lymphocytes # 2.1 K/mcL (0.6-4.6); Lymphocytes % 19.4 %; Mean Corpuscular Hemoglobin 30.9 pg (28.0-33.3); Mean Corpuscular Volume 99.1 fL (83.0-100.0); Mean Platelet Volume 10.5 fL (9.4-12.4); Monocytes # 1.2 K/mcL (0.0-1.3); Monocytes % 11.2 %; Neutrophils # 7.3 K/mcL (1.6-8.9); Platelet Count 194 K/mcL (140-400); Segmented Neutrophils % 67.6 %; White Blood Count 10.8 K/mcL (4.3-11.1)
[2021-11-01 02:40] LABS: Potassium 4.5 mEq/L (3.5-5.1)
[2021-11-01] MEDS: *HR* OxyCODONE Immed Rel 5 MG TABLET PO PRN ×3 (04:08→23:17)
[2021-11-01] MEDS: Celecoxib 200 MG CAPSULE PO SCH (07:45)
[2021-11-01] MEDS: Ascorbic Acid 500 MG TABLET PO SCH ×2 (07:45→17:55)
[2021-11-01] MEDS: lisinopriL 20 MG TABLET PO PRN (07:45)
[2021-11-01] MEDS: Multivit/Ca/Min/Fe/FA 1 TAB TABLET PO SCH (07:46)
[2021-11-01] MEDS: Famotidine 20 MG TABLET PO SCH (07:47)
[2021-11-01] MEDS: Gabapentin 400 MG CAPSULE PO PRN ×2 (07:47→14:56)
[2021-11-01] MEDS: Aspirin Enteric Coated 81 MG Tablet PO SCH ×2 (10:11→19:49)
[2021-11-01] MEDS: carvediloL 25 MG TABLET PO PRN (19:49)
[2021-11-01] MEDS: amLODIPine 5 MG TABLET PO PRN (19:50)
[2021-11-02 04:55] LABS: Basophils % 0.3 %; Eosinophils # 0.1 K/mcL (0.0-0.6); Eosinophils % 1.1 %; Hematocrit 30.7 % (37.5-50.1); Hemoglobin 9.8 g/dL (12.9-16.9); Immature Granulocytes % 0.9 % (0-4); Lymphocytes # 2.4 K/mcL (0.6-4.6); Lymphocytes % 24.8 %; Mean Corpuscular HGB Conc 31.9 g/dL (31.6-35.5); Mean Corpuscular Hemoglobin 30.7 pg (28.0-33.3); Mean Corpuscular Volume 96.2 fL (83.0-100.0); Mean Platelet Volume 9.9 fL (9.4-12.4); Monocytes # 1.3 K/mcL (0.0-1.3); Monocytes % 13.2 %; Neutrophils # 5.7 K/mcL (1.6-8.9); Platelet Count 193 K/mcL (140-400); Red Blood Count 3.19 M/mcL (4.19-5.50); Red Cell Distribution Width 13.2 % (11.5-14.5); Segmented Neutrophils % 59.7 %; White Blood Count 9.6 K/mcL (4.3-11.1)
[2021-11-02 05:07] LABS: BUN/Creatinine Ratio 24 (6-26); Blood Urea Nitrogen 29 mg/dL (8-23); Calcium 9.1 mg/dL (8.6-10.3); Carbon Dioxide 27 mEq/L (23-29); Chloride 105 mEq/L (98-107); Glucose 123 mg/dL (70-105); Osmolality,Calculated 295 (280-300); Potassium 4.3 mEq/L (3.5-5.1); Sodium 139 mEq/L (136-145); eGFR For African Americans > 60 (> 60); eGFR For Non-African Americans 58 (> 60)
[2021-11-02] MEDS: Aspirin Enteric Coated 81 MG Tablet PO SCH ×2 (08:58→19:41)
[2021-11-02] MEDS: Celecoxib 200 MG CAPSULE PO SCH (08:58)
[2021-11-02] MEDS: Ascorbic Acid 500 MG TABLET PO SCH ×2 (08:58→17:41)
[2021-11-02] MEDS: Multivit/Ca/Min/Fe/FA 1 TAB TABLET PO SCH (08:58)
[2021-11-02] MEDS: Famotidine 20 MG TABLET PO SCH (08:59)
[2021-11-02] MEDS: *HR* OxyCODONE Immed Rel 5 MG TABLET PO PRN (14:53)
[2021-11-02] MEDS: amLODIPine 5 MG TABLET PO PRN (19:41)
[2021-11-02] MEDS: carvediloL 25 MG TABLET PO PRN (19:41)
[2021-11-02] MEDS: Gabapentin 400 MG CAPSULE PO PRN (19:41)
[2021-11-03] MEDS: *HR* OxyCODONE Immed Rel 5 MG TABLET PO PRN ×3 (02:47→21:20)
[2021-11-03] MEDS: carvediloL 25 MG TABLET PO PRN (07:47)
[2021-11-03] MEDS: Gabapentin 400 MG CAPSULE PO PRN ×2 (07:47→21:20)
[2021-11-03] MEDS: lisinopriL 20 MG TABLET PO PRN (07:47)
[2021-11-03] MEDS: Multivit/Ca/Min/Fe/FA 1 TAB TABLET PO SCH (07:47)
[2021-11-03] MEDS: Aspirin Enteric Coated 81 MG Tablet PO SCH ×2 (07:47→21:20)
[2021-11-03] MEDS: Celecoxib 200 MG CAPSULE PO SCH (07:48)
[2021-11-03] MEDS: Ascorbic Acid 500 MG TABLET PO SCH ×2 (07:48→17:13)
[2021-11-03] MEDS: Famotidine 20 MG TABLET PO SCH (07:48)
[2021-11-04] MEDS: Ascorbic Acid 500 MG TABLET PO SCH ×2 (08:47→17:24)
[2021-11-04] MEDS: Famotidine 20 MG TABLET PO SCH (08:47)
[2021-11-04] MEDS: Multivit/Ca/Min/Fe/FA 1 TAB TABLET PO SCH (08:47)
[2021-11-04] MEDS: Aspirin Enteric Coated 81 MG Tablet PO SCH ×2 (08:47→21:51)
[2021-11-04] MEDS: Celecoxib 200 MG CAPSULE PO SCH (08:48)
[2021-11-04] MEDS: lisinopriL 20 MG TABLET PO PRN (08:57)
[2021-11-04] MEDS: carvediloL 25 MG TABLET PO PRN (08:58)
[2021-11-04] MEDS: Gabapentin 400 MG CAPSULE PO PRN ×2 (08:58→21:51)
[2021-11-04 11:50] LABS: Influenza A PCR Negative (Negative); Influenza B PCR Negative (Negative); Resp. Syncytial Virus PCR Negative (Negative)
[2021-11-04 11:57] LABS: SARS-CoV-2 by PCR (In House) Positive (Negative)
[2021-11-04 16:39] LABS: Influenza A PCR Negative (Negative); Influenza B PCR Negative (Negative); Resp. Syncytial Virus PCR Negative (Negative)
[2021-11-04 16:53] LABS: SARS-CoV-2 by PCR (In House) Positive (Negative)
[2021-11-04] MEDS: *HR* OxyCODONE Immed Rel 5 MG TABLET PO PRN (21:51)
[2021-11-05] MEDS: Celecoxib 200 MG CAPSULE PO SCH (10:13)
[2021-11-05] MEDS: Ascorbic Acid 500 MG TABLET PO SCH ×2 (10:13→18:25)
[2021-11-05] MEDS: Famotidine 20 MG TABLET PO SCH (10:13)
[2021-11-05] MEDS: Aspirin Enteric Coated 81 MG Tablet PO SCH ×2 (10:13→20:01)
[2021-11-05] MEDS: Multivit/Ca/Min/Fe/FA 1 TAB TABLET PO SCH (10:13)
[2021-11-05] MEDS: *HR* OxyCODONE Immed Rel 5 MG TABLET PO PRN ×2 (10:22→18:25)
[2021-11-05] MEDS: Gabapentin 400 MG CAPSULE PO PRN (20:01)
[2021-11-05] MEDS: carvediloL 25 MG TABLET PO SCH (21:53)
[2021-11-06] MEDS: Multivit/Ca/Min/Fe/FA 1 TAB TABLET PO SCH (07:27)
[2021-11-06] MEDS: Celecoxib 200 MG CAPSULE PO SCH (07:28)
[2021-11-06] MEDS: Aspirin Enteric Coated 81 MG Tablet PO SCH ×2 (07:29→19:40)
[2021-11-06] MEDS: carvediloL 25 MG TABLET PO SCH ×2 (07:29→17:32)
[2021-11-06] MEDS: Famotidine 20 MG TABLET PO SCH (07:29)
[2021-11-06] MEDS: Ascorbic Acid 500 MG TABLET PO SCH ×2 (07:31→17:31)
[2021-11-06] MEDS: *HR* OxyCODONE Immed Rel 5 MG TABLET PO PRN ×3 (07:36→21:47)
[2021-11-07] MEDS: *HR* OxyCODONE Immed Rel 5 MG TABLET PO PRN (02:03)
[2021-11-07] MEDS: Ascorbic Acid 500 MG TABLET PO SCH (09:09)
[2021-11-07] MEDS: Aspirin Enteric Coated 81 MG Tablet PO SCH (09:09)
[2021-11-07] MEDS: Multivit/Ca/Min/Fe/FA 1 TAB TABLET PO SCH (09:09)
[2021-11-07] MEDS: Celecoxib 200 MG CAPSULE PO SCH (09:09)
[2021-11-07] MEDS: Famotidine 20 MG TABLET PO SCH (09:10)
[2021-11-07] MEDS: carvediloL 25 MG TABLET PO SCH (09:10)
[2021-11-07 13:38] VITALS: BP 159/87; PULSE 104; TEMP 98.2; O2SAT 96
== END 2021-11-07 16:09 | disposition home health service (06) | DRG 469 ==
LOC: SDCAOSI 06:27 → 4WAOSI 11:32
PROVIDERS: ADMIT Orthopaedic Surgery; ATTEND Orthopaedic Surgery